=== PATIENT | male | born 1985 | race African-American/Black ===

== ENCOUNTER 2018-05-11 22:58 | Emergency (ER) | payer SELFPAY ==
[~2018-05-11] VITALS: Ht 180.3 cm; Wt 88.6 kg
[~2018-05-11 22:58] MED LIST: NOCURR
[2018-05-12] MEDS ORDERED: CEPHALEXIN MONOHYDRATE 500 MG CAPSULE PO ONE (00:45)
[2018-05-12] MEDS ORDERED: IBUPROFEN 600 MG TABLET PO ONE (00:45)
[2018-05-12] MEDS ORDERED: HYDROCODONE/ACETAMINOPHEN 5-325 MG TABLET PO ONE (00:45)
[2018-05-12 01:01] VITALS: BP 127/79
== END 2018-05-12 01:07 | disposition home or self-care (01) ==
LOC: EMS 22:59
DX: K08.89 Other specified disorders of teeth and supporting structures (principal); R51 Headache
CPT/HCPCS: 99284

== ENCOUNTER 2021-03-07 17:24 | Emergency (ER) | payer MEDICAID ==
[2021-03-07] MEDS ORDERED: PERTUSS(ACELL),DIPH,TET VAC/PF 0.5 ML SYRINGE IM. ONE (18:15)
[2021-03-07] MEDS ORDERED: LIDOCAINE 1% 20 ML VIAL SQ ONE (18:15)
[2021-03-07] MEDS ORDERED: LIDOCAINE 1% 10 ML VIAL SQ ONE (18:15)
[2021-03-07 18:50] VITALS: BP 114/74
== END 2021-03-07 19:15 | disposition home or self-care (01) ==
LOC: EMS 17:24
DX: S51.812A Laceration without foreign body of left forearm, initial encounter (principal); W22.8XXA Striking against or struck by other objects, initial encounter; Y93.89 Activity, other specified; Y92.89 Other specified places as the place of occurrence of the external cause; Y99.8 Other external cause status
CPT/HCPCS: 12005; 90471; 90715; 99283; J3490

== ENCOUNTER 2021-03-22 09:35 | Emergency (ER) | payer MEDICAID ==
[~2021-03-22] VITALS: Ht 180.3 cm; Wt 95.5 kg
[2021-03-22 10:30] VITALS: BP 138/87
[2021-03-22] MEDS ORDERED: BACITRACIN 0.9 GM PACKET OINTMENT TP ONE (10:30)
[2021-03-22] MEDS ORDERED: HYDROCODONE/ACETAMINOPHEN 5-325 MG TABLET PO ONE (10:30)
== END 2021-03-22 10:49 | disposition home or self-care (01) ==
LOC: EMS 09:38
DX: M79.632 Pain in left forearm (principal); Z48.02 Encounter for removal of sutures
CPT/HCPCS: 99283

== ENCOUNTER 2021-08-09 09:12 | Emergency (ER) | payer MEDICAID ==
[~2021-08-09] VITALS: Ht 180.3 cm; Wt 97.7 kg
[2021-08-09] MEDS ORDERED: DEXAMETHASONE SOD PHOS 4 MG/ML 5 ML VIAL PO ONE (09:45)
[2021-08-09] MEDS ORDERED: MAALOX/LIDOCAINE/NYSTATIN SUSP 5 ML ORAL.SYG MM ONE (09:45)
[2021-08-09 09:57] LABS: COVID AG,FIA SOURCE NASAL SWAB
[2021-08-09 10:49] VITALS: BP 139/91
[2021-08-09] MEDS ORDERED: PENICILLIN G BENZATHINE LA 1,200,000 UNITS/2 ML SYRINGE IM ONE (11:00)
== END 2021-08-09 11:15 | disposition home or self-care (01) ==
LOC: EMS 09:15
DX: J02.9 Acute pharyngitis, unspecified (principal); Z20.822 Contact with and (suspected) exposure to COVID-19
CPT/HCPCS: 87426; 87430; 96372; 99283; J0561; J1100

== ENCOUNTER 2021-12-24 06:58 | Emergency (ER) | payer MEDICAID ==
[~2021-12-24] VITALS: Ht 180.3 cm; Wt 102.3 kg
[2021-12-24] MEDS ORDERED: CefTRIAXone SODIUM 1 GM/VIAL IM ONE (07:30)
[2021-12-24] MEDS ORDERED: LIDOCAINE/PF 1% 2 ML VIAL IM ONE (07:30)
[2021-12-24] MEDS ORDERED: DEXAMETHASONE SOD PHOS 4 MG/ML 5 ML VIAL IM ONE (07:30)
[2021-12-24] MEDS ORDERED: PENI500T2 PO (07:36)
[2021-12-24] MEDS ORDERED: IBUP-2070 PO (07:37)
[2021-12-24 08:04] VITALS: BP 138/89
== END 2021-12-24 08:14 | disposition home or self-care (01) ==
LOC: EMS 07:00
DX: J03.90 Acute tonsillitis, unspecified (principal); F17.210 Nicotine dependence, cigarettes, uncomplicated
CPT/HCPCS: 96372; 99284; J0696; J1100; J3490

== ENCOUNTER 2022-10-14 00:42 | Emergency (ER) | payer SELFPAY ==
[~2022-10-14] VITALS: Ht 180.3 cm; Wt 100.0 kg
[~2022-10-14 00:42] MED LIST changes: +IBUP-1492 PO; -NOCURR; +PENI500T2 PO
[2022-10-14 01:00] VITALS: BP 127/89
[2022-10-14 01:44] LABS: COVID AG,FIA SOURCE NASAL SWAB
[2022-10-14 01:56] LABS: RAPID GROUP A STREP NEGATIVE (NEGATIVE)
[2022-10-14] MEDS ORDERED: DEXAMETHASONE 4 MG TABLET PO ONE (02:00)
[2022-10-14] MEDS ORDERED: AMOX250C4 PO (02:03)
[2022-10-14 02:08] LABS: INFLUENZA TYPE A NEGATIVE FOR TYPE A (NEGATIVE); INFLUENZA TYPE B NEGATIVE FOR TYPE B (NEGATIVE)
== END 2022-10-14 02:55 | disposition home or self-care (01) ==
LOC: EMS 00:42
DX: J02.9 Acute pharyngitis, unspecified (principal); F12.90 Cannabis use, unspecified, uncomplicated; F17.210 Nicotine dependence, cigarettes, uncomplicated; Z20.822 Contact with and (suspected) exposure to COVID-19
CPT/HCPCS: 99283; 87426; 87430; 87804; J8540